=== PATIENT | female | born 1945 | race Caucasian/White ===

== ENCOUNTER 2017-11-26 09:28 | Outpatient (CLI) | payer MEDICARE, BC ==
--- NOTE | 2017-11-26 11:50 | ULT ---
RIGHT UPPER QUADRANT ULTRASOUND: Date: 11-26-17 History: Right upper quadrant pain for one week. Technique: Multiplanar grayscale sonographic imaging of the right upper quadrant obtained. FINDINGS: The attendance secretary reports a negative Luque's sign. The pancreas is partially obscured by bowel gas, vi sualized portions grossly unremarkable. No focal liver lesion or intrahepatic biliary dilatation is noted. The common bile duct measures 3 mm , within normal limits. There is no gallbladder wall thickening or pericholecystic fluid. Right kidney measures 10 cm in cran iocaudal dimension and demonstrates no stone, hydronephrosis, or mass. On some of the provided images along the posterior aspect of the gallbladder there is subtle increase d echogenicity which may signify small volume sludge or tiny gallstones. IMPRESSION: Question small volume sludge versus tiny gallstones with no sonographic evidence of cholecystitis or biliary dilatation. POS: [id number]
== END 2017-11-26 09:29 | disposition home or self-care (01) ==
LOC: MADULT 09:28
PROVIDERS: ATTEND Obstetrics & Gynecology
DX: R10.11 Right upper quadrant pain (principal)
CPT/HCPCS: 76705